=== PATIENT | female | born 1985 | race Hispanic/Latino ===

== ENCOUNTER 2016-09-16 16:19 | Emergency (ER) | payer OTHER ==
[~2016-09-16] VITALS: Ht 170.2 cm; Wt 72.6 kg
--- NOTE | 2016-09-16 16:25 | ED GENERAL ADULT ---
History of Present Illness General Chief Complaint: General Adult Stated Complaint: BIBA ABD PAIN, HYPOGLYCEMIA, SYNCOPE Source: patient Exam Limitations: no limitations Allergies Coded Allergies: shellfish derived (Severe, ANAPHYLAXIS 09/16/16) Triage Nurses Notes Reviewed? yes Onset: Abrupt Duration: day(s): Timing: recent history HPI: 09/16/16 4:40 PM THIS IS A 31-YEAR-OLD FEMALE WITH A PAST MEDICAL HISTORY OF OVARIAN CYST, A HEART MURMUR, AND ASTHMA. SHE SAID THAT SHE WAS DIAGNOSED WITH A OVARIAN CYST APPROXIMATELY ONE YEAR AGO. SHE HAS AN IUD SHE HAS A PAST SURGICAL HISTORY FOR 2 SHE WAS IN HER USUAL STATE OF HEALTH UNTIL TODAY WHEN SHE WAS AT WORK AND SHE DEVELOPED A SUDDEN ONSET OF SEVERE RIGHT LOWER QUADRANT ABDOMINAL PAIN. THE PAIN WAS INTENSE AND SHE THOUGHT SHEWOULD GO HOME SECONDARY TO THE PAIN BUT FELT A LITTLE BETTER AND SO SHE DECIDED TO GO OUTSIDE AND SMOKE A CIGARETTE, WHEN SHE WAS WALKING BACK AND SHE FELT LIKE SHE WAS GOING TO PASS OUT AND FELL TO THE FLOOR AND HIT HER RIGHT SIDE OF THE FACE. SHE DENIES LOSS OF CONSCIOUSNESS. SHE DENIES ANY HEADACHE. SHE DOES ADMIT TO ONGOING RIGHT LOWER QUADRANT PAIN. SHE DENIES ANY NECK PAIN. SHE HAS FREE RANGE OF MOTION OF THE NECK AND THE NEXUS CRITERIA ARE NEGATIVE. THE ONSET OF THE SYMPTOMS WERE ABRUPT, THE DURATION WAS JUST THIS AFTERNOON, THE SEVERITY IS SIGNIFICANT HER SYMPTOMS REQUIRED HER TO COME TO THE EMERGENCY DEPARTMENT FOR CARE. SHE HAS ASSOCIATED RIGHT LOWER QUADRANT ABDOMINAL PAIN SYNCOPE AND BACK PAIN. (SAUL LIM DO) Vital Signs & Intake/Output Vital Signs & Intake/Output Vital Signs Date Time Temp Pulse Resp B/P Pulse O2 O2 Flow FiO2 Ox Delivery Rate 09/16 2009 98.3 69 18 124/74 100 Room Air 09/16 1743 74 18 121/65 99 Room Air 09/16 1645 99 Room Air 09/16 1635 97.7 09/16 1626 73 18 108/53 100 Room Air Reconcile Medications Hyoscyamine (Levsin) 0.125 MG TABLET 1-2 TAB PO Q6P PRN ABDOMINAL CRAMPS Promethazine HCl 25 MG TABLET 1 TAB PO Q6P PRN NAUSEA/VOMITING (JJ TERRY,SAUL Green) Past History Travel History Traveled to [place] past 21 day No Medical History Any Pertinent Medical History? see below for history Cardiovascular: MURMUR Respiratory: asthma PHARMACY PICKING TECH/Reproductive: HPV. OVARIAN CYST Surgical History Surgical History: Family History Hx Contributory? No (SAUL LIM DO) Review of Systems Review of Systems Constitutional: Reports: chills. Denies: fever. Respiratory: Denies: short of breath. Cardiovascular: Denies: chest pain. GI: Reports: abdominal pain. Genitourinary: Reports: no symptoms. Musculoskeletal: Reports: back pain. Skin: Denies: rash. Neurological/Psychological: Denies: headache. Hematologic/Endocrine: Denies: bruising, bleeding. Immunologic/Allergic: Reports: no symptoms. (SAUL LIM DO) Physical Exam Physical Exam General Appearance: awake, anxious, mild distress Head: atraumatic, normal appearance Eyes: Bilateral: normal appearance, PERRL, EOMI. Ears, Nose, Throat: normal ENT inspection Neck: full range of motion, no midline tenderness Respiratory: normal breath sounds, chest non-tender, no respiratory distress Cardiovascular: regular rate/rhythm Peripheral Pulses: 4+ radial (R), 4+ radial (L) Gastrointestinal: tenderness, RLQ,NO REBOUND OR GARDING Back: decreased range of motion Extremities: normal inspection, no edema Neurologic/Psych: no motor/sensory deficits, awake, alert, oriented x 3 Skin: intact, normal color, warm/dry Core Measures ACS in differential dx? No CVA/TIA Diagnosis: No Severe Sepsis Present: No Septic Shock Present: No (SAUL LIM DO) Progress Differential Diagnoses I considered the following diagnoses in my evaluation of the patient: [Ruptured ectopic , ruptured hemorrhagic ovarian cyst, ruptured ovarian cyst, appendicitis, ovarian cyst, PID, tubo-ovarian abscess, ovarian torsion] Plan of Care: Orders Procedure Date/time Status D-DIMER 09/16 1728 Complete Add-on Test (ER Only) 09/16 171 Active TROPONIN LEVEL 09/16 170 Complete HUMAN BETA HCG SCREEN 09/16 170 Complete COMPREHENSIVE METABOLIC PANEL 09/16 170 Complete CBC WITHOUT DIFFERENTIAL 09/16 170 Complete EKG 09/16 1639 Active Laboratory Tests 09/16/16 172: Anion Gap 7, Estimated GFR > 60, BUN/Creatinine Ratio 17.1, Glucose 85, Calcium 8.2 L, Total Bilirubin 0.8, AST 16, ALT 26, Alkaline Phosphatase 50, Troponin I < 0.01, Total Protein 6.0 L, Albumin 3.3 L, Globulin 2.7, Albumin/Globulin Ratio 1.2, Total Beta HCG NEGATIVE, D-Dimer 437 H, CBC w Diff NO MAN DIFF REQ, RBC 4.49, MCV 84.1, MCH 27.2, RDW 14.2, MPV 8.9, Gran % 86.9 H, Lymphocytes % 7.4 L, Monocytes % 4.7, Eosinophils % 1.0, Basophils % 0 L, Absolute Granulocytes 10.5 H, Absolute Lymphocytes 0.9 L, Absolute Monocytes 0.6, Absolute Eosinophils 0.1, Absolute Basophils 0, PUBS MCHC 32.3 L Initial ED EKG: NSR (CARINA SANTO,SAUL Nair) Differential Diagnoses I considered the following diagnoses in my evaluation of the patient: Diagnostic Imaging: Discussed w/RAD: Ultrasound. Radiology Impression: PATIENT: CORTNEY FU PRESENT AGE: 31 PATIENT ACCOUNT NO: [id number] : 83 LOCATION: [facility] ORDERING PHYSICIAN: SAUL LIM DO SERVICE DATE: 09/16/16 EXAM TYPE: US - US-TRANSVAGINAL EXAMINATION: ULTRASOUND PELVIS COMPLETE CLINICAL INFORMATION: Right lower quadrant pain. COMPARISON: CT abdomen and pelvis 10/16/2016. TECHNIQUE: Real-time sonographic imaging of the uterus and bilateral adnexa via transabdominal and transvaginal approach. FINDINGS: The uterus is anteverted and measures 8.6 x 3.9 x 5.3 cm in sagittal, AP and transverse dimensions respectively. An intrauterine device is present within the endometrial canal and appears appropriately positioned. The thickness of the endometrial stripe is difficult to assess given the presence of an intrauterine device. The cervical length is 3.1 cm. Several nabothian cysts are identified. There are no uterine fibroids. The bilateral ovaries appear unremarkable. The right ovary measures 2.7 x 2.8 x 2.9 cm, corresponding to a volume of 11.6 mL. The left ovary measures 2.9 x 1.5 x 2.5 cm, corresponding to a volume of 5.9 mL. Several small follicles are present within the bilateral ovaries. Arterial and venous flow are demonstrated within both ovaries. No significant free pelvic fluid. IMPRESSION: No acute findings within the pelvis. An intrauterine device is present and appears appropriately positioned. The bilateral ovaries appear unremarkable. Arterial and venous flow are demonstrated within both ovaries. DICTATED BY: JENNIFER PABLO MD DATE/TIME DICTATED:09/16/162122 CRITICAL CARE EDUCATOR:LUNA DATE/TIME TRANSCRIBED:09/16/162122 CONFIDENTIAL, DO NOT COPY WITHOUT APPROPRIATE AUTHORIZATION. <Electronically signed in Other Vendor System> SIGNED BY: JENNIFER PABLO MD 09/16/162129, PATIENT: CORTNEY FU PRESENT AGE: 31 PATIENT ACCOUNT NO: [id number] : 83 LOCATION: [facility] ORDERING PHYSICIAN: SAUL LIM DO SERVICE DATE: 09/16/16 EXAM TYPE: US - US-EXT BILAT VENOUS DOPPLER EXAMINATION: US TRIPLEX LOWER EXTREMITY, BILATERAL CLINICAL INFORMATION: Elevated d-dimer. COMPARISON: None available. TECHNIQUE: Color-flow triplex imaging with spectral analysis and compression Doppler were performed on the bilateral lower extremities. FINDINGS: Respiratory variation, normal compression and augmented flow are noted throughout the bilateral lower extremities. The visualized common femoral vein, superficial femoral vein, profunda femoral vein, popliteal vein and midcalf peroneal and posterior tibial venous segments show no evidence of deep venous thrombosis. There is no Plummer's cyst. IMPRESSION: Normal triplex scan without evidence of deep venous thrombosis involving the bilateral lower extremities. DICTATED BY: SAUL GONZALEZ MD DATE/TIME DICTATED:09/16/162034 CRITICAL CARE EDUCATOR:LUNA DATE/TIME TRANSCRIBED:09/16/162034 CONFIDENTIAL, DO NOT COPY WITHOUT APPROPRIATE AUTHORIZATION. 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 09/16/2016 10:01:59 PM I have updated the result on her test results. She is comfortable at this point and feels better as a result of the medications administered in the emergency department. Plan prescriptions for antiemetic and antispasmodic and follow-up with her primary care physician within the next 48 hours. Patient states that her daughter has been vomiting all day and that her has also begun to feel dizzy and a little nauseous. This raises the possibility of a viral syndrome as the underlying etiology for the patient's symptoms. She was concerned about her fainting episode but the patient states that she feels she lost consciousness only for a second and was able to hear witnesses around her during the majority of the episode. I feel that this was a reflection of her nausea, abdominal pain and decreased PO intake. I do not suspect a cardiac cause. The patient currently appears awake alert and without any signs of respiratory distress despite the IV narcotic pain relievers administered. (JJ TERRY,SAUL Green) Departure Departure Disposition: HOME OR SELF CARE Condition: Stable Referrals: SHERYL GOMES (PCP/Family) Comments 09/16/16 8:[address] scan shows nonspecific bowel inflammation consistent with enteritis. Transvaginal ultrasound was ordered to exclude ovarian torsion and lower extremity ultrasound was ordered to rule out DVT. The patient was signed out to Dr. Baltazar at 8 PM (SAUL LIM DO) Departure Clinical Impression Primary Impression: Abdominal pain Qualifiers: Abdominal location: right lower quadrant Qualified Code: R10.31 - Right lower quadrant pain Secondary Impressions: Syncope Qualifiers: Syncope type: unspecified Qualified Code: R55 - Syncope and collapse Additional Instructions: Phenergan as needed for nausea or vomiting, Levsin as needed for pain. Follow- up with your primary care physician within the next 48 hours for reevaluation. Return if any concerns or sudden worsening. Please note that there might be incidental findings in your evaluation that are unrelated to the current emergency department visit. Please notify your primary care doctor about this emergency department visit in order to obtain and review all of the testing performed so that these incidental findings can be monitored as needed. If you had an x-ray performed, please understand that some fractures may not be seen on the initial set of x-rays. If your symptoms persist you might need a repeat set of x-rays to check for such a fracture. If you had a laceration evaluated, please understand that foreign bodies such as glass or wood may not be visible to the naked eye or on plain x-rays. If the wound becomes red, swollen, increasingly more painful or if there is any drainage from the wound, please have it reevaluated by a physician for the possibility of a retained foreign body. Thank you for choosing the [facility] Emergency Department for your care. It was a pleasure to serve you today. Saul Baltazar M.D. [facility] Departure Forms: Customer Survey General Discharge Information RELEASE- WORK Prescriptions: Current Visit Scripts Promethazine HCl 1 TAB PO Q6P PRN NAUSEA/VOMITING #12 TAB Hyoscyamine (Levsin) 1-2 TAB PO Q6P PRN ABDOMINAL CRAMPS #20 TAB (JJ TERRY,SAUL Green) Critical Care Note Critical Care Note Critical Care Time: non-applicable (SAUL LIM DO) Critical Care Note Critical Care Time: 30-74 min (JJ TERRY,SAUL Green)
[2016-09-16 17:50] LABS: ABSOLUTE BASOPHIL COUNT 0 /CUMM (0.0-0.2); ABSOLUTE EOSINOPHIL COUNT 0.1 /CUMM (0.0-0.7); ABSOLUTE GRANULOCYTE CT 10.5 /CUMM (1.4-6.5); ABSOLUTE LYMPH COUNT 0.9 /CUMM (1.2-3.4); ABSOLUTE MONOCYTE COUNT 0.6 /CUMM (0.10-0.60); BASOPHIL % 0 % (0.0-2.0); HEMATOCRIT 37.8 % (37-47); MEAN CORPUSCULAR HGB 27.2 PG (27.0-31.0); MEAN CORPUSCULAR HGB CONC 32.3 G/DL (33.0-37.0); MEAN CORPUSCULAR VOLUME 84.1 FL (81.0-99.0); MEAN PLATELET VOLUME 8.9 FL (7.4-10.4); PLATELET COUNT 166 /CUMM (130-400); RBC DISTRIBUTION WIDTH 14.2 % (11.5-14.5); RED BLOOD CELL CT 4.49 /CUMM (4.20-5.40); WHITE BLOOD CELL COUNT 12.1 /CUMM (4.8-10.8)
[2016-09-16 18:29] LABS: GRANULOCYTE % 86.9 % (42.2-75.2)
--- NOTE | 2016-09-16 19:01 | CT SCAN REPORT ---
CT ABDOMEN AND PELVIS WITHOUT CONTRAST CLINICAL INFORMATION: Right lower quadrant pain to rule out ovarian cyst or appendicitis. COMPARISON: None available. TECHNIQUE: Multidetector volumetric imaging was performed from the superior aspect of the liver through the pubic symphysis. Sagittal and coronal reformatted images were obtained on the technologist's workstation. FINDINGS: The lung bases are clear. Limited evaluation of the unenhanced liver, spleen, adrenal glands, and pancreas reveals no definite abnormality. Dependent increased density within the gallbladder suggesting sludge or stones. The kidneys are symmetric in size without evidence of hydronephrosis or nephrolithiasis. Fluid-filled loops of small bowel are seen throughout the lower half of the abdomen to the level of the terminal ileum. None of these loops are dilated. There is mesenteric venous engorgement. Findings could reflect underlying enteritis. The appendix is normal. There is no free air and there is no intra-abdominal free fluid. No mesenteric or retroperitoneal adenopathy. There is an IUD in place. The right and left adnexa are unremarkable. Trace free fluid within the pelvic cul-de-sac, likely physiologic. There are no acute osseous abnormalities. No significant soft tissue abnormality. IMPRESSION: - Nondilated fluid-filled loops of small bowel throughout the abdomen associated with mesenteric venous engorgement, possibly reflecting an enteritis infectious or inflammatory etiology. The appendix is normal and no adnexal lesions are identified. There is no bowel obstruction. - Cholelithiasis without evidence of acute cholecystitis.
--- NOTE | 2016-09-16 20:40 | ULTRASOUND REPORT ---
EXAMINATION: US TRIPLEX LOWER EXTREMITY, BILATERAL CLINICAL INFORMATION: Elevated d-dimer. COMPARISON: None available. TECHNIQUE: Color-flow triplex imaging with spectral analysis and compression Doppler were performed on the bilateral lower extremities. FINDINGS: Respiratory variation, normal compression and augmented flow are noted throughout the bilateral lower extremities. The visualized common femoral vein, superficial femoral vein, profunda femoral vein, popliteal vein and midcalf peroneal and posterior tibial venous segments show no evidence of deep venous thrombosis. There is no Plummer's cyst. IMPRESSION: Normal triplex scan without evidence of deep venous thrombosis involving the bilateral lower extremities.
--- NOTE | 2016-09-16 21:30 | ULTRASOUND REPORT ---
EXAMINATION: ULTRASOUND PELVIS COMPLETE CLINICAL INFORMATION: Right lower quadrant pain. COMPARISON: CT abdomen and pelvis 10/16/2016. TECHNIQUE: Real-time sonographic imaging of the uterus and bilateral adnexa via transabdominal and transvaginal approach. FINDINGS: The uterus is anteverted and measures 8.6 x 3.9 x 5.3 cm in sagittal, AP and transverse dimensions respectively. An intrauterine device is present within the endometrial canal and appears appropriately positioned. The thickness of the endometrial stripe is difficult to assess given the presence of an intrauterine device. The cervical length is 3.1 cm. Several nabothian cysts are identified. There are no uterine fibroids. The bilateral ovaries appear unremarkable. The right ovary measures 2.7 x 2.8 x 2.9 cm, corresponding to a volume of 11.6 mL. The left ovary measures 2.9 x 1.5 x 2.5 cm, corresponding to a volume of 5.9 mL. Several small follicles are present within the bilateral ovaries. Arterial and venous flow are demonstrated within both ovaries. No significant free pelvic fluid. IMPRESSION: No acute findings within the pelvis. An intrauterine device is present and appears appropriately positioned. The bilateral ovaries appear unremarkable. Arterial and venous flow are demonstrated within both ovaries.
[2016-09-16] MEDS ORDERED: PROMETHAZINE HC25 M3 PO (22:07)
[2016-09-16] MEDS ORDERED: LEVSIN0.125 M1 PO (22:07)
[2016-09-16 22:29] VITALS: BP 112/74
== END 2016-09-16 22:29 ==
LOC: ERH 16:19
PROVIDERS: Emergency Medicine
DX: R10.31 Right lower quadrant pain (principal); R55 Syncope and collapse
CPT/HCPCS: 74176; 93005; 93010; 93970; 96374; 96375; J0131; J2405

== ENCOUNTER 2017-12-09 08:28 | Emergency (ER) | payer OTHER ==
[~2017-12-09] VITALS: Ht 170.2 cm; Wt 90.7 kg
[~2017-12-09 08:28] MED LIST: LEVSIN0.125 M1 PO; PROMETHAZINE HC25 M3 PO
--- NOTE | 2017-12-09 09:04 | ED GENERAL ADULT ---
History of Present Illness General Chief Complaint: Upper Respiratory Sx/Fever Stated Complaint: COUGH AND CONGESTION Source: patient Exam Limitations: no limitations Vital Signs & Intake/Output Vital Signs & Intake/Output Vital Signs Date Time Temp Pulse Resp B/P B/P Pulse O2 O2 Flow FiO2 Mean Ox Delivery Rate 12/09 1255 99.7 12/09 1255 99.7 12/09 1227 101.3 12/09 1215 101.3 65 20 119/60 98 12/09 1027 100.3 12/09 1020 100.3 73 126/56 95 Room Air 12/09 1003 98 Room Air 12/09 1000 100.0 12/09 0831 100.0 95 16 120/71 96 Room Air Allergies Coded Allergies: shellfish derived (Severe, ANAPHYLAXIS 09/16/16) Reconcile Medications Albuterol Sulfate (Proair Hfa) 90 MCG HFA.AER.AD 2 PUF INH Q4-6 PRN PRN SHORTNESS OF BREATH (Reported) Doxycycline Hyclate (Vibramycin) 100 MG CAPSULE 1 CAP PO BID anaplasma Ondansetron HCl (Zofran) 4 MG TABLET 1 TAB PO Q6-8P nausea Triage Note: 32 Y/O FEMALE C/O URI SYMPTOMS X 2-3 DAYS. REPORTS NAUSEA/VOMITING, CHILLS, FEVER YESTERDAY AND COUGH STATES SHE HAS BEEN TAKING IBUPROPHEN, DAYQUIL AND NYQUIL WITH NO RELIEF. DENIES RECENT SICK CONTACTS. TEMP 100.0 IN TRIAGE. CONGESTED COUGH NOTED. Triage Nurses Notes Reviewed? yes Onset: Abrupt Duration: day(s): Timing: recent history : No Patient currently breastfeeds: No HPI: 12/09/17 9:37 AM 32-year-old female presents to the emergency department for cough, congestion, polymyalgia, chills and vomiting. She denies any abdominal pain or diarrhea. No recent travel. No rash or tick bite. She has a past medical history of asthma. Past surgical history for tubal ligation. Past History Travel History Traveled to [place] past 21 day No Medical History Any Pertinent Medical History? 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 OVARIAN CYST Surgical History Surgical History: Psychosocial History What is your primary language Bulgarian Tobacco Use: Current Daily Use Daily Tobacco Use Amount/Type: =< 4 Cigarettes daily Family History Hx Contributory? No Review of Systems Review of Systems Constitutional: Reports: chills. Denies: fever. EENTM: Denies: visual changes. Respiratory: Reports: cough. Cardiovascular: Denies: chest pain. GI: Reports: vomiting. Denies: abdominal pain. Genitourinary: Reports: no symptoms. Musculoskeletal: Reports: muscle pain. Skin: Denies: rash. Neurological/Psychological: Reports: see HPI, headache. Hematologic/Endocrine: Reports: no symptoms. Immunologic/Allergic: Reports: no symptoms. Physical Exam Physical Exam General Appearance: well developed/nourished, alert, awake, anxious, mild distress Head: atraumatic, normal appearance Eyes: Bilateral: normal appearance, PERRL, EOMI. Ears, Nose, Throat: normal pharynx, normal ENT inspection Neck: normal inspection, supple, full range of motion Respiratory: normal breath sounds, chest non-tender, no respiratory distress Cardiovascular: regular rate/rhythm Peripheral Pulses: 4+ radial (R), 4+ radial (L) Gastrointestinal: soft, non-tender Back: normal range of motion Extremities: no edema Neurologic/Psych: no motor/sensory deficits, awake, alert, oriented x 3 Skin: intact, normal color, warm/dry Core Measures ACS in differential dx? No CVA/TIA Diagnosis: No Sepsis Present: No Sepsis Focused Exam Completed? No Progress Differential Diagnoses I considered the following diagnoses in my evaluation of the patient: [Viral syndrome, urinary tract infection, Lyme disease, pneumonia, bronchitis, other tickborne illness.] Plan of Care: Orders Procedure Date/time Status Add-on Test (ER Only) 12/09 1139 Active Add-on Test (ER Only) 12/09 0944 Active URINE 12/09 0937 Complete URINALYSIS 12/09 0937 Complete LYME TITRE 12/09 0935 Active COMPREHENSIVE METABOLIC PANEL 12/09 0935 Complete CBC WITHOUT DIFFERENTIAL 12/09 934 Complete ANAPLASMA PHAGOCYTOPHILUM DNA 12/09 0935 Active Laboratory Tests 12/09/ 0954: Urine Color YEL, Urine Clarity HAZY H, Urine pH 6.0, Ur Specific [place] >= 1.030, Urine Protein 30 H, Urine Ketones TRACE H, Urine Nitrite NEG, Urine Bilirubin NEG@ICTO, Urine Urobilinogen 0.2, Ur Leukocyte Esterase NEG, Ur Microscopic SEDIMENT EXAMINED, Urine RBC 5-10 H, Urine WBC 1-3 H, Ur Epithelial Cells FEW, Urine Bacteria MANY H, Urine Hemoglobin MOD H, Urine Glucose NEG, Urine Test NEGATIVE 12/09/17 0943: Anion Gap 8, Estimated GFR > 60, BUN/Creatinine Ratio 8.9, Glucose 102 H, Calcium 8.7, Total Bilirubin 0.3, AST 42 H, ALT 41, Alkaline Phosphatase 69, Total Protein 6.2 L, Albumin 3.4 L, Globulin 2.8, Albumin/Globulin Ratio 1.2, CBC w Diff NO MAN DIFF REQ, RBC 4.89, MCV 79.9 L, MCH 26.5 L, MCHC 33.2, RDW 15.1 H, MPV 8.9, Gran % 63.1, Lymphocytes % 30.2, Monocytes % 6.6, Eosinophils % 0, Basophils % 0.1, Absolute Granulocytes 1.8, Absolute Lymphocytes 0.9 L, Absolute Monocytes 0.2, Absolute Eosinophils 0, Absolute Basophils 0, Lyme Disease Antibody Pending 12/09/17 0935: A.phagocytophil DNA PCR Pending Initial ED EKG: none Departure Departure Disposition: STILL A PATIENT Condition: Stable Clinical Impression Primary Impression: Polymyalgia Secondary Impressions: Viral syndrome Referrals: Corine Bernardo APRN (PCP/Family) Departure Forms: Customer Survey General Discharge Information Prescriptions: Current Visit Scripts Doxycycline Hyclate (Vibramycin) 1 CAP PO BID #20 CAP Ondansetron HCl (Zofran) 1 TAB PO Q6-8P #5 TAB Comments The patient labs revealed thrombocytopenia, leukopenia, concern for anaplasmosis. She was empirically treated with doxycycline. Anaplasma PCR was sent. Critical Care Note Critical Care Note Critical Care Time: non-applicable
[2017-12-09] MEDS ORDERED: PROAIR HFA8.5 GM INH (09:26)
[2017-12-09 09:56] LABS: ABSOLUTE BASOPHIL COUNT 0 /CUMM (0.0-0.2); ABSOLUTE EOSINOPHIL COUNT 0 /CUMM (0.0-0.7); ABSOLUTE GRANULOCYTE CT 1.8 /CUMM (1.4-6.5); ABSOLUTE LYMPH COUNT 0.9 /CUMM (1.2-3.4); ABSOLUTE MONOCYTE COUNT 0.2 /CUMM (0.10-0.60); BASOPHIL % 0.1 % (0.0-2.0); EOSINOPHIL % 0 % (0-5); GRANULOCYTE % 63.1 % (42.2-75.2); HEMATOCRIT 39.1 % (37-47); MEAN CORPUSCULAR HGB 26.5 PG (27.0-31.0); MEAN CORPUSCULAR HGB CONC 33.2 G/DL (33.0-37.0); MEAN CORPUSCULAR VOLUME 79.9 FL (81.0-99.0); MEAN PLATELET VOLUME 8.9 FL (7.4-10.4); RBC DISTRIBUTION WIDTH 15.1 % (11.5-14.5); RED BLOOD CELL CT 4.89 /CUMM (4.20-5.40)
[2017-12-09 10:26] LABS: PLATELET COUNT 123 /CUMM (130-400); WHITE BLOOD CELL COUNT 2.9 /CUMM (4.8-10.8)
[2017-12-09] MEDS ORDERED: ZOFRAN4 M2 PO (11:42)
[2017-12-09] MEDS ORDERED: VIBRAMYCIN100 MG PO (11:42)
[2017-12-09 12:15] VITALS: BP 119/60
== END 2017-12-09 12:56 ==
LOC: ERH 08:28
PROVIDERS: Emergency Medicine
DX: M35.3 Polymyalgia rheumatica (principal); B34.9 Viral infection, unspecified
CPT/HCPCS: 86618; 87798; 81001; 81025; 96361; 96365; 96375; J0131; J2405